=== PATIENT | male | born 1975 | race Caucasian/White ===

== ENCOUNTER 2020-02-27 12:29 | Emergency (ER) | payer OTHER ==
[2020-02-27] MEDS ORDERED: Bupivacaine 0.5% 30 ML SDV INFILT ONE (12:56)
[2020-02-27] MEDS ORDERED: Bupivacaine 0.5% 10 ML SDV ONE (13:01)
[2020-02-27] MEDS ORDERED: Bupivacaine 0.5% 10 ML SDV INJECT ONE (13:05)
[2020-02-27] MEDS ORDERED: Bacitracin Oint 1 GM U/D Packet TOP ONE (13:51)
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
--- NOTE | 2020-03-01 09:22 | CR ---
Fingers Fifth Digit Rt F9 CLINICAL HISTORY: Crush injury FINDINGS: Patient has moderate soft tissue disruption of the tip of the fifth digit. There is a comminuted tuft fracture. There is a fracture of the radial aspect of the base of the distal phalanx at the articular margin. IMPRESSION: Fractures of the distal phalanx
== END 2020-02-27 14:41 | disposition home or self-care (01) ==
LOC: JP.ED 12:29
DX: S61.316A Laceration without foreign body of right little finger with damage to nail, initial encounter (principal); V86.56XA Driver of dirt bike or motor/cross bike injured in nontraffic accident, initial encounter
CPT/HCPCS: 11760; 73140; 99283; J3490